=== PATIENT | female | born 1930 | race African-American/Black ===

== ENCOUNTER 2018-09-18 11:36 | Inpatient (IN) | payer OTHER ==
[~2018-09-18] VITALS: Ht 160 cm; Wt 67.1 kg
[~2018-09-18 11:36] MED LIST: ARICEPT10 M1 PO; ASPIR 8181 MG PO; BACTRIM 400-801 EACH PO; DEMADEX20 MG PO; KEFLEX500 MG PO; LOVASTATIN 20 M20 MG PO; MACROBID 100 M100 M1 PO; METHIMAZOLE5 MG PO; NAMENDA 10 MG T10 MG PO; TOUJEO SOL300 UNIT/1 SUBQ
[2018-09-18 11:44] VITALS: BP 155/68
[2018-09-18 12:10] LABS: URINE BILIRUBIN NEGATIVE (Negative); URINE BLOOD 2+ (Negative); URINE CLARITY CLOUDY; URINE COLOR YELLOW; URINE GLUCOSE-RANDOM* NEGATIVE (Negative); URINE KETONES NEGATIVE (Negative); URINE NITRITE-REFLEX NEGATIVE (Negative); URINE PROTEIN (DIPSTICK) 2+ (Negative); URINE UROBILINOGEN 0.2 E.U./dl (0.2-1.0)
[2018-09-18 12:11] LABS: ABSOLUTE NEUTROPHILS 7.9 thou/uL (1.4-8.2); BASOPHILS 0.3 % (0.0-2.0); EOSINOPHILS 0.2 % (0.0-3.0); HEMOGLOBIN 15.2 gm/dL (12.0-15.0); LYMPHOCYTES 16.7 % (24.0-44.0); MCHC 32.4 g/dL (28.0-37.0); MCV 86.5 fL (80.0-100.0); MONOCYTES 4.7 % (1.0-8.0); POLYS 78.1 % (36.0-66.0); RBC 5.44 mil/uL (4.20-5.00); RDW 13.2 % (10.5-14.5); URINE LEUKOCYTES-REFLEX 3+ (Negative); WBC 10.1 thou/uL (4.0-11.0)
[2018-09-18 12:20] LABS: BACTERIA-REFLEX 1-9 Few /HPF (None Seen); CASTS None Seen /LPF (None Seen); CRYSTALS None Seen /LPF (None Seen); SQUAMOUS 0-3 Few /LPF (0-3); URINE RBC 3-10 Few /HPF (0-2); URINE WBC-REFLEX >25 Many /HPF (0-5)
[2018-09-18 12:24] LABS: ANION GAP 10 mmol/L (7-16); BUN 31 mg/dL (7-18); CALCIUM 9.8 mg/dL (8.5-10.1); CHLORIDE 101 mmol/L (98-107); CO2 25 mmol/L (21-32); CREATININE 2.2 mg/dL (0.6-1.0); GLUCOSE 230 mg/dL (74-106); POTASSIUM 4.7 mmol/L (3.5-5.1); SODIUM 136 mmol/L (136-145)
[2018-09-18 12:32] LABS: ALBUMIN 3.3 g/dL (3.4-5.0); SGOT 37 U/L (15-37); SGPT 32 U/L (30-65); TOTAL BILIRUBIN 0.5 mg/dL (<0.1-1.0); TROPONIN-I <0.06 ng/mL (<0.06)
[2018-09-18 12:37] LABS: PLATELET COUNT 255 thou/uL (150-400)
[2018-09-18 13:57] LABS: CHOLESTEROL 179 mg/dL (<200); HDL CHOLESTEROL 63 mg/dL (>40); LDL CHOLESTEROL 91 mg/dL (<100); TC:HDL 2.8 Ratio (Not establshd); TRIGLYCERIDE 126 mg/dL (<150); VLDL 25 mg/dL (<40)
[2018-09-18 14:21] LABS: FOLIC ACID 8.7 ng/mL (8.6-58.9); TSH 2.954 uIU/mL (0.358-3.740)
[2018-09-18 14:29] VITALS: BP 151/54
[2018-09-18 14:57] VITALS: BP 143/55
[2018-09-18 15:33] VITALS: BP 106/64
--- NOTE | 2018-09-18 17:31 | EKG ---
[address] [address] ELECTROCARDIOGRAM REPORT Name: NEELAM SAMSON Room #: 422-P ADM IN M.R.#: [id number] ������������������ Admission: 09/18/18 ������������������ Attend Phys: Maribel Velasquez Discharge: ������������������ Date of : [birth year] Report #: [id number] ����������������������������������������������������������������� [id number] THIS REPORT FOR: //name// [facility] ED Test Date: 2018-09-18 Test Time: 12:08:53 Pat Name: NEELAM SAMSON Department: Room: [facility] Gender: F Academic Assistant: MAJOR : [id number] Requested By: Denise Barajas Order Number: [id number] MD: Aleksandar Abreu Measurements Intervals [place] Rate: 78 P: 55 [place]: 163 QRS: 25 QRSD: 111 T: 151 QT: 403 QTc: 460 Interpretive Statements Sinus rhythm Borderline repolarization abnormality Compared to ECG 05/10/2017 00:27:03 No significant change was found Electronically Signed On 09-18-2018 17:31:23 POWER OPERATOR by Aleksandar Abreu [email or web address] ��������������������������������������������� <ELECTRONICALLY SIGNED> ���������������������������������������� By: Aleksandar Abreu MD, [facility] ��������������������������������������������� 09/18/18 1731 1208 120 Aleksandar Abreu MD, [facility] /EPI
--- NOTE | 2018-09-18 18:15 | NUR ---
Pt arrive to floor from emergency room at 1500 accompanied by her dtr. Admission hx ,assessment and care plan completed.Pt only hold conversation with dtr.skin intact.Piv infusing as ordered.Blood sugar at dinner was 178. insulin given as ordered.Pt in bed feeding self.Will continue to monitor.
[2018-09-18 19:20] VITALS: BP 118/94
--- NOTE | 2018-09-19 00:41 | NUR ---
Assumed care of pt at 1900. Pt is confused and unable to voice needs. Q2h turn. IVF infusing. Incontinent. Fall precautions in place. Will continue to monitor.
[2018-09-19 05:30] VITALS: BP 88/72
--- NOTE | 2018-09-19 08:20 | NUR ---
ASSUMED CARE OF PT AT 0700. ASSESSMENT COMPLETED. AWAKE, DISORIENTED X4. HX DEMENTIA. UNABLE TO VOICE CONCERNS, MUMBLING NOTED. DOES NOT APPEAR TO BE IN ANY PAIN OR DISTRESS. AM MEDS GIVEN ORDERED. ACHS, NO LISPRO COVERAGE NEEDED THIS AM. PT LYING IN BED. ROOM AIR. REGULAR HEART SOUNDS. INCONTINENT. NO EDEMA. SKIN INTACT. ABD SCAR AND MASS NOTED. WILL CONTINUE TO MONITOR.
[2018-09-19 08:59] VITALS: BP 141/71
--- NOTE | 2018-09-19 16:07 | NUR ---
Case opened to follow for dc planning. Pt is confused and noted to have dementia. Director Clinical Operations spoke with dtr/prisca Galdamez via phone. She indicates that the pt has lived with her for approx 10 years. She has dementia but is normally alert and mobile around the house. She does not use an assistive device. They do have a w/c for outtings. Her pcp is Dr. Elmo Dawkins and she has an appt with him next month. The pt was last here in 2017 and did a snf stay at [facility] with some f/u hh. The pt's dtr is not interested in a SNF stay and wants the pt to [facility], noting that she will need to be able to ambulate at her plof. Therapy evals requested. She would be open to HH if recommended at [facility]. She denies agency preference. Will f/u with her once her functional mobility has been evaluated. Cm role introduced.
[2018-09-19 17:04] VITALS: BP 164/82
--- NOTE | 2018-09-19 17:08 | NUR ---
DAUGHTER REPORTS PATIENT HAS NOT HAD A BM IN ONE WEEK, MIRALAX GIVEN ORDERED. ONE INCONTINENT BOWEL MOVEMENT THIS SHIFT. DAUGHTER ASKED TO RESTART HOME DEMENTIA MEDS, PHYSICIAN NOTIFIED. NEW MEDS ORDERED. NO OTHER CHANGE IN STATUS.
[2018-09-19 20:14] VITALS: BP 165/49
[2018-09-20] VITALS (7 sets, daily range): BP systolic 111–158; BP diastolic 58–60
--- NOTE | 2018-09-20 02:23 | NUR ---
Assumed care of pt at 1900. Pt alert and oriented to self. Q2h turn. IVF infusing. Incontinent of bowel and bladder. Fall precautions in place. Will continue to monitor.
[2018-09-20 05:09] LABS: ALBUMIN 2.3 g/dL (3.4-5.0); CALCIUM 8.5 mg/dL (8.5-10.1); PHOSPHORUS 2.7 mg/dL (2.5-4.9); POTASSIUM 3.7 mmol/L (3.5-5.1)
[2018-09-20 05:14] LABS: CREATININE 1.2 mg/dL (0.6-1.0)
[2018-09-20] MEDS ORDERED: CEFUROXIME250 MG PO (08:27)
[2018-09-20] MEDS ORDERED: SENOKOT-S TABL1 EACH PO (08:56)
[2018-09-20] MEDS ORDERED: LANTUS100 UNIT/M SUBQ (08:57)
--- NOTE | 2018-09-20 11:57 | NUR ---
ASSUMED CARE OF PT AT 0700. ASSESSMENT COMPLETED. ALERT, DISORIENTED X4. HX DEMENITA. DOES NOT APPEAR TO BE IN ANY DISTRESS OR PAIN. AM MEDS GIVEN ORDERED. ROOM AIR. BM TODAY. SKIN INTACT. PT WORKED WITH P.T. - SITTING IN CHAIR NOW AND MIN ASSIST. DAUGHTER AT BEDSIDE. ACHS, SHORT ACTING INSULIN REFUSED. NEW DISCHARGE ORDERS. WILL CONTINUE TO MONITOR.
--- NOTE | 2018-09-20 12:01 | NUR ---
DAUGHTER DOES NOT WANT INTERMEDIATE. HOME HEALTH TO BE ARRANGED BY CASE MANAGEMENT.
--- NOTE | 2018-09-20 12:47 | NUR ---
MET WITH DTR THIS AM TO [facility] AND SHE WAS INTERESTED IN [facility], [facility]. THERAPIES WORKED WITH PT AND SHE DID WELL AND NOW DTR THINKS SHE CAN TAKE HER DIRECTLY HOME WITH HH SERVICES AND SHE WISHES TO USE [facility]. PT HAS HAD THEM IN THE PAST. WILL ASK DC INSIDE TECHNICAL SALES REPRESENTATIVE TO SEND HH ORDERS TO [facility].
--- NOTE | 2018-09-20 14:55 | NUR ---
FAXED REFERRAL TO [facility] SPOKE WITH SHAHEEN IN ADM. SHE RECEIVED REFERRAL BUT WILL NOT HAVE HH AIDE AVAILABLE AND CANNOT GET VISITS STARTED BEFORE FRIDAY 09/22. DCP NOTIFIED SW AND WILL WAIT ON DECISION FOR HH. DCP TO FOLLOW.
--- NOTE | 2018-09-20 16:49 | NUR ---
DISCHARGE ORDERS. IV REMOVED, NO BLEEDING. PT DRESSED IN PERSONAL CLOTHING. DAUGHTER AT BEDSIDE. DISCHARGE INFORMATION GIVEN TO DAUGHTER. NEW SCRIPTS AND CARENOTES GIVEN. BELONGINGS COLLECTED. PT LEFT IN STABLE CONDITION VIA WHEELCHAIR AT 16:34.
== END 2018-09-20 16:35 | disposition home health service (06) | DRG 682 ==
LOC: ER 11:36 → EROBS 13:18 → 4E 13:18 → ENTRNSPT 09-20 16:25 → 4E 09-20 16:35
PROVIDERS: Nurse Practitioner Family; ADMIT Hospitalist
DX: N17.9 Acute kidney failure, unspecified (principal); E43 Unspecified severe protein-calorie malnutrition; N39.0 Urinary tract infection, site not specified; E46 Unspecified protein-calorie malnutrition; I10 Essential (primary) hypertension; E11.9 Type 2 diabetes mellitus without complications; F03.90 Unspecified dementia, unspecified severity, without behavioral disturbance, psychotic disturbance, mood disturbance, and anxiety; E78.5 Hyperlipidemia, unspecified; E21.3 Hyperparathyroidism, unspecified; K59.00 Constipation, unspecified; M62.84 Sarcopenia; E03.9 Hypothyroidism, unspecified; Z98.42 Cataract extraction status, left eye; Z98.41 Cataract extraction status, right eye; Z87.891 Personal history of nicotine dependence; Z68.26 Body mass index [BMI] 26.0-26.9, adult
CPT/HCPCS: 10084